=== PATIENT | male | born 1980 | race Two or more races ===

== ENCOUNTER 2021-12-28 14:23 | Emergency (ER) | payer OTHER ==
[~2021-12-28] VITALS: Ht 175.3 cm; Wt 81.8 kg
[2021-12-28 14:32] VITALS: BP 116/88
[2021-12-28] MEDS ORDERED: CYCL-1 PO (16:30)
[2021-12-28] MEDS ORDERED: NAPR-56 PO (16:30)
== END 2021-12-28 16:37 | disposition home or self-care (01) ==
LOC: ER 14:23
DX: M54.50 Low back pain, unspecified (principal); R51.9 Headache, unspecified; Z79.899 Other long term (current) drug therapy; V87.7XXA Person injured in collision between other specified motor vehicles (traffic), initial encounter; Y93.89 Activity, other specified; Y92.89 Other specified places as the place of occurrence of the external cause; Y99.8 Other external cause status
CPT/HCPCS: 72100; 73080; 99284

== ENCOUNTER 2022-01-18 12:16 | Emergency (ER) | payer MEDICAID, OTHER ==
[~2022-01-18] VITALS: Ht 175.3 cm; Wt 81.8 kg
[~2022-01-18 12:16] MED LIST: CYCL-1 PO; NAPR-56 PO
[2022-01-18 12:22] VITALS: BP 127/72
== END 2022-01-18 13:44 | disposition home or self-care (01) ==
LOC: ER 12:16
DX: G44.219 Episodic tension-type headache, not intractable (principal)
CPT/HCPCS: 99281